=== PATIENT | female | born 1995 | race Caucasian/White ===

== ENCOUNTER 2025-05-29 16:55 | Emergency (ER) | payer SELFPAY ==
[~2025-05-29] VITALS: Ht 167.6 cm; Wt 64.9 kg
[2025-05-29] MEDS ORDERED: HYDROmorphONE Hydrochloride 0.5 MG/0.5 ML SYRINGE IV ONE (17:30)
[2025-05-29] MEDS ORDERED: SODIUM CHLORIDE 0.9% 1,000 ML IV SCH (17:30)
[2025-05-29 17:48] LABS: BASO # 0.0 10*3/uL (0.0-0.1); BASO % 0.4 % (0.0-1.0); EOS # 0.1 10*3/uL (0.0-0.4); EOS % 0.8 % (1.0-4.0); MEAN CELL VOLUME 80.5 fl (81.0-99.0); MEAN CORPUSCULAR HGB 25.7 pg (27.0-31.0); MEAN PLATELET VOLUME 8.8 fl (9.6-12.3); MONO # 0.6 10*3/uL (0.1-1.0); MONO % 5.5 % (3.0-9.0); NEUT # 8.0 10*3/uL (2.3-7.9); NEUT % 74.1 % (47.0-73.0); NUCLEATED RED BLOOD CELL 0.0 % (0.0-0.0); NUCLEATED RED BLOOD CELL 0.0 10*3/uL (0.0-0.0); PLATELET COUNT AUTOMATED 363 10*3/uL (130-400); RED CELL DISTRI WIDTH 15.1 % (0-14.5)
[2025-05-29 18:09] LABS: BUN 11 mg/dl (9-23)
[2025-05-29] MEDS ORDERED: VIBRAMYCIN100 MG PO (18:45)
== END 2025-05-29 18:57 | disposition home or self-care (01) ==
LOC: ED 16:55
PROVIDERS: Nurse Practitioner Family
DX: L02.214 Cutaneous abscess of groin (principal)